=== PATIENT | male | born 1950 | race American Indian/Alaskan Native ===

== ENCOUNTER 2021-05-15 08:16 | Day surgery (SDC) | payer MEDICARE ==
[2021-05-15 09:54] LABS: Basophils # (Auto) 0.2 K/mm3 (0.0-0.1); Basophils % (Auto) 2.1 % (0.0-1.8); Eosinophils # (Auto) 0.2 K/mm3 (0.0-0.4); Hematocrit 39.6 % (35.5-45.6); Hemoglobin 13.2 gm/dl (11.8-15.2); Lymphocytes # (Auto) 2.4 K/mm3 (1.2-5.4); Lymphocytes % (Auto) 28.2 % (13.4-35.0); Mean Corpuscular HGB Conc 33 % (32-34); Mean Corpuscular Volume 95 fl (84-94); Monocytes # (Auto) 0.4 K/mm3 (0.0-0.8); Platelet Count 212 K/mm3 (140-440); Red Blood Count 4.16 M/mm3 (3.65-5.03)
[2021-05-15] MEDS ORDERED: SODIUM CHLORIDE 0.9% 500 ML 500 ML IV SCH (10:00)
[2021-05-15 10:03] LABS: INR 0.93 (0.87-1.13)
[2021-05-15 10:04] LABS: Partial Thromboplastin Time 31.3 Sec. (24.2-36.6)
[2021-05-15 10:05] LABS: BUN/Creatinine Ratio 8; Blood Urea Nitrogen 8 mg/dL (9-20); Hemolysis Index 2
[2021-05-15] MEDS ORDERED: LIDOCAINE (2%) 20 MG/1 ML VIAL 20 ML MDV INFILTRATI ONE (10:42)
[2021-05-15] MEDS ORDERED: HEPARIN/NS 5000 UNIT/500ML 1,000 ML IR ONE (10:42)
[2021-05-15] MEDS ORDERED: HEPARIN 10,000 UNITS/10 ML VIAL ONE (10:42)
[2021-05-15] MEDS ORDERED: ceFAZolin/Water 2 GM/20 ML 2 GM/20 ML SYRINGE IV ONE (10:44)
[2021-05-15] MEDS ORDERED: fentaNYL 100 MCG/2 ML INJ ONE (10:55)
[2021-05-15] MEDS ORDERED: MIDAZOLAM 2 MG/2 ML INJ ONE (10:55)
[2021-05-15] MEDS ORDERED: ceFAZolin/STERILE WATER 2 GM/20 ML SYRINGE IV ONE (11:21)
[2021-05-15] MEDS ORDERED: APIXABAN 5 MG TAB ONE (12:26)
--- NOTE | 2021-05-15 14:15 | Short Stay Summary ---
Short Stay Documentation Date of service: 05/15/21 - History Principal diagnosis: PVD with claudication H&P: obtained from office - Allergies and Medications Current Medications: Allergies No Known Allergies Allergy (Verified 05/15/21 09:23) Home Medications Medication Instructions Recorded Confirmed Last Taken Type Albuterol Sulfate 2.5 mg IH Q6H PRN 05/15/21 05/15/21 Unknown History Calcitonin,Kimball,Synthetic 1 spray INTRANASAL DAILY 05/15/21 05/15/21 05/14/21 History [Calcitonin-Kimball] Fluticasone/Salmeterol(Nf) [Advair 1 puff IH BID 05/15/21 05/15/21 05/14/21 History HFA 115-21 mcg] Fluticasone/Vilanterol [Breo 1 each IH DAILY 05/15/21 05/15/21 05/14/21 History Ellipta 100-25 Mcg INH] Folic Acid [Folvite] 1 mg PO QDAY 05/15/21 05/15/21 05/14/21 History Meclizine HCl [Motion Sickness] 25 mg PO DAILY 05/15/21 05/15/21 05/14/21 History Meloxicam [Mobic] 7.5 mg PO QDAY 05/15/21 05/15/21 05/14/21 History Metoprolol [Lopressor] 25 mg PO BID 05/15/21 05/15/21 05/14/21 History Omeprazole 20 mg PO AC 05/15/21 05/15/21 05/14/21 History Sucralfate [Carafate] 1 gm PO ACHS 05/15/21 05/15/21 05/14/21 History Tizanidine HCl 4 mg PO TID 05/15/21 05/15/21 05/14/21 History gemfibroziL [Lopid] 600 mg PO BID 05/15/21 05/15/21 05/14/21 History Active Medications Sodium Chloride (Nacl 0.9% 500 Ml) 500 mls @ 50 mls/hr IV DIRECT JAGRUTI - Brief post op/procedure progress note Date of procedure: 05/15/21 Pre-op diagnosis: PVD with claudication Post-op diagnosis: same Procedure: Attempted recanalization of occluded left common iliac artery Anesthesia: local Surgeon: VANGIE OSEGUERA Estimated blood loss: minimal Pathology: none Condition: stable - Disposition Condition at discharge: Good Disposition: 01 HOME / SELF CARE / HOMELESS Short Stay Discharge Plan Activity: advance as tolerated Weight Bearing Status: Weight Bear as Tolerated Diet: regular Wound: keep clean and dry, per your surgeon's advice Follow up with: MICHAEL ROMAN MD [Primary Care Provider] - 7 Days
--- NOTE | 2021-05-15 14:20 | Operative Report ---
Operative Report Operative Report: Exam: Recanalization of left common iliac artery, recanalization of right occluded external iliac artery, abdominal aortic angiography and iliac artery angiography Clinical indication: Patient with a history of peripheral vascular disease with short distance claudication Date: 05/15/2021 Procedure: Following an explanation of the risks, benefits and alternatives; written informed consent was obtained. The patient was brought to the angiographic suite and placed in supine position on the examination table. Initial ultrasound evaluation of his groins demonstrated patent although significantly atherosclerotic common femoral arteries bilaterally. The patient's bilateral groins were prepped and draped in the usual sterile fashion. Under ultrasound guidance, the left common femoral artery was cannulated with a 7 cm 21-gauge needle. A 0.018 guidewire was advanced proximally under fluoroscopy. The needle was removed and a microsheath placed. Contrast was injected to the micro sheath which demonstrates that the external iliac artery is patent. There is occlusion of the common iliac artery. Significant collateral flow was identified. A 0.035 guidewire was then advanced through the micro sheath and the micro sheath exchanged for a 5 [place] sheath. A vertebral catheter was then advanced over the guidewire and together the guidewire manipulated with the catheter through the occluded common iliac artery into the distal abdominal aorta. Contrast was injected. This demonstrates occlusion of the distal abdominal aorta however, significant collateral formation is i identified suggesting some flow. Decision was made to access the right side for further evaluation. Under ultrasound guidance, the right common femoral artery was cannulated with a 7 cm 21-gauge needle. A 0.018 guidewire was advanced proximally under fluoroscopy. The needle was removed and a microsheath placed. Contrast was injected through the micro sheath. This demonstrates a focal occlusion at the level of the common and bifurcation of internal and external iliac arteries. A 0.035 guidewire was then advanced through the micro sheath and the micro sheath exchanged for a five [place] vascular sheath. A vertebral catheter was then advanced over the guidewire and together guidewire catheter manipulated through the occluded distal common iliac artery. Contrast was injected which demonstrates that the proximal common iliac artery is patent. Again noted is occlusion of the distal abdominal aorta. At this point in time, the catheters, guidewires and sheaths were removed and hemostasis achieved using manual compression. A sterile dressing was applied. The patient tolerated the procedure well. There were no immediate post procedure complications. Conscious sedation was performed under the guidance of radiologic nursing. Continuous cardiopulmonary monitoring is utilized. Impression: Recanalization of an occluded left common iliac artery and the recannulization of an occluded distal right common iliac artery. 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 The patient will need to undergo further evaluation with a CTA of the abdomen and pelvis for presurgical planning as he will most likely require a either an aortobifem or aortic endograft placement with extension of the limbs distally.
[2021-05-15 15:45] VITALS: BP 125/59
== END 2021-05-15 16:35 | disposition home or self-care (01) ==
LOC: CATHLABREC 08:16
PROVIDERS: ATTEND Radiology Diagnostic Radiology
DX: I70.213 Atherosclerosis of native arteries of extremities with intermittent claudication, bilateral legs (principal); E78.00 Pure hypercholesterolemia, unspecified; I10 Essential (primary) hypertension; J44.9 Chronic obstructive pulmonary disease, unspecified; K21.9 Gastro-esophageal reflux disease without esophagitis; M81.0 Age-related osteoporosis without current pathological fracture; F17.210 Nicotine dependence, cigarettes, uncomplicated; Z98.890 Other specified postprocedural states; Z79.899 Other long term (current) drug therapy
CPT/HCPCS: 36245; 36415; 75625; 75716; 76937; 80048; 85025; 85610; 85730; 99156; 99157; C1751; C1769; J0690; J1644; J2250; J3010; J3490; J7040; 36246; Q9967